=== PATIENT | male | born 1965 | race Caucasian/White ===

== ENCOUNTER 2018-09-11 06:52 | Day surgery (SDC) | payer MEDICARE ==
[2018-09-11] VITALS (10 sets, daily range): BP systolic 118–144; BP diastolic 82–106
[~2018-09-11] VITALS: Ht 188 cm; Wt 111.6 kg
[2018-09-11] MEDS ORDERED: sod bicarbonate 150mEq in D5W 1,150 ML IV ONE (07:15)
[2018-09-11] MEDS ORDERED: normal saline 1000ml 1,000 ML IV SCH (07:15)
[2018-09-11] MEDS ORDERED: diphenhydrAMINE 25mg capsule PO PRN (07:15)
[2018-09-11] MEDS ORDERED: GABA600T13 PO (07:27)
[2018-09-11] MEDS ORDERED: MONT10TA24 PO (07:27)
[2018-09-11] MEDS ORDERED: CYCL-394 PO (07:27)
[2018-09-11] MEDS ORDERED: ASPI81TA52 PO (07:27)
[2018-09-11] MEDS ORDERED: DILT180C95 PO (07:27)
[2018-09-11] MEDS ORDERED: FLO0.4C PO (07:27)
[2018-09-11] MEDS ORDERED: PANT-47 PO (07:27)
[2018-09-11] MEDS ORDERED: ROPI3TAB4 PO (07:27)
[2018-09-11 08:08] LABS: ALBUMIN 3.8 G/DL (3.4-5.0); ANION GAP 11 (8-16); BLOOD UREA NITROGEN 15 MG/DL (7-18); BUN/CREATININE RATIO 16.3 (5.4-32.0); CALCIUM 8.8 MG/DL (8.5-10.1); CHLORIDE 104 MMOL/L (99-107); CREATININE 0.92 MG/DL (0.60-1.10); GLUCOSE 101 MG/DL (70-104); MAGNESIUM 2.1 MG/DL (1.5-2.4); POTASSIUM 3.7 MMOL/L (3.5-5.1); SODIUM 142 MMOL/L (135-145); TOTAL CARBON DIOXIDE 26.8 MMOL/L (24-32); eGFR 86 ML/MIN
[2018-09-11 08:12] LABS: BASOPHILS % (AUTO) 0.6 % (0-1); EOSINOPHILS # (AUTO) 0.4 X10'3 (0-0.9); EOSINOPHILS % (AUTO) 4.5 % (0-6); HEMATOCRIT 51.3 % (42.0-52.0); HEMOGLOBIN 17.5 g/dl (14.0-17.9); LYMPHOCYTES # (AUTO) 2.3 X10'3 (1.1-4.8); LYMPHOCYTES % (AUTO) 27.9 % (21-51); MEAN CORPUSCULAR HEMOGLOBIN 30.3 PG (27.0-31.0); MEAN CORPUSCULAR HGB CONC 34.1 % (33.0-36.5); MEAN CORPUSCULAR VOLUME 88.6 FL (78-98); MEAN PLATELET VOLUME 8.9 FL (7.4-10.4); MONOCYTES # (AUTO) 0.5 X10'3 (0-0.9); MONOCYTES % (AUTO) 5.9 % (2-12); NEUTROPHILS % (AUTO) 61.1 % (42-75); PLATELET COUNT 259 X10'3 (140-440); RED BLOOD COUNT 5.79 X10'6 (4.70-6.10); RED CELL DISTRIBUTION WIDTH 13.7 % (11.5-14.5); WHITE BLOOD COUNT 8.1 X10'3 (4.5-11.0)
[2018-09-11 08:28] LABS: PROTHROMBIN TIME 10.2 SECONDS (9.0-12.0)
[2018-09-11] MEDS ORDERED: LIDOcaine/PRILOcaine 5gm cream TP ONE (08:35)
[2018-09-11] MEDS ORDERED: LIDOcaine 1% (10mg/ml)w/preservative injection 20ml MDV ONE (08:59)
[2018-09-11] MEDS ORDERED: iohexol 350 MG/ML 50ML vial IV ONE (08:59)
[2018-09-11] MEDS ORDERED: midazolam 2 mg/2 ml injection ONE ×3 (08:59→09:47)
[2018-09-11] MEDS ORDERED: iohexol 350MG/ML 100ml bottle IV ONE (08:59)
[2018-09-11] MEDS ORDERED: fentaNYL/PF 50MCG/1 ML 2ML syringe ONE (08:59)
[2018-09-11] MEDS ORDERED: heparin 1,000unit/ml 10ml vial 10 ML ONE (09:49)
[2018-09-11] MEDS ORDERED: nitroGLYCERIN-Tridil 50MG/D5W 250 ML IV ONE (09:49)
[2018-09-11] MEDS ORDERED: verapamil 2.5 mg/ml inj IV ONE (09:49)
== END 2018-09-11 14:02 | disposition home or self-care (01) ==
LOC: SSTAY O 06:52
PROVIDERS: ATTEND Internal Medicine Cardiovascular Disease
DX: R07.9 Chest pain, unspecified (principal); I10 Essential (primary) hypertension; I48.0 Paroxysmal atrial fibrillation; K21.9 Gastro-esophageal reflux disease without esophagitis; G89.29 Other chronic pain; L40.8 Other psoriasis; N40.0 Benign prostatic hyperplasia without lower urinary tract symptoms; Z87.891 Personal history of nicotine dependence; Z87.442 Personal history of urinary calculi; Z79.891 Long term (current) use of opiate analgesic; Z95.0 Presence of cardiac pacemaker; Z79.82 Long term (current) use of aspirin; Z79.899 Other long term (current) drug therapy; Z98.890 Other specified postprocedural states; Z83.3 Family history of diabetes mellitus; Z84.1 Family history of disorders of kidney and ureter; Z82.49 Family history of ischemic heart disease and other diseases of the circulatory system
CPT/HCPCS: 36415; 80048; 83735; 85025; 85610; 93005; 93458; 99152; 99153; A6257; J1644; J2001; J2250; J3010; J7030; Q0163; Q9967; A4620; C1769; C1894; J3490